=== PATIENT | male | born 1985 | race Caucasian/White ===

== ENCOUNTER 2017-08-13 15:37 | Emergency (ER) | payer BC ==
--- NOTE | 2017-08-14 11:49 | CR ---
INDICATION: Fifth toe trauma, hit on bed leg at 1100. RIGHT FOOT: Three views of the right foot revealed transverse fracture through the distal phalanx of the 5th toe in good position and alignment. No other bone or joint abnormality was identified. MTDD
--- NOTE | 2017-08-16 08:18 | ER ---
DATE SEEN: 08/13/2017 TIME SEEN: The patient was seen at 1544 hours. 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 It makes it difficult for him to work. The patient works at [employer]. He is supposed to go to work at 1830 hours, and he would like a work note to excuse himself. He has lot of pain with walking. He noted that he had difficulty putting his boot on, so he thought perhaps he needed to be seen to rule out a fracture. ALLERGIES: None. PAST MEDICAL HISTORY: Negative. No diabetes, heart disease, high blood pressure or asthma. No serious fractures, hospitalizations, or injuries. MEDICATIONS: None. REVIEW OF SYSTEMS: Otherwise negative, except for as noted above. PHYSICAL EXAMINATION: VITAL SIGNS: Blood pressure 133/66, heart rate 97, respirations 17, oxygen saturation 96%, temperature is 37.2 degrees centigrade, 86.18 kg, BMI 30.7 kg/m2. GENERAL: This pleasant slightly overweight gentleman has moderate discomfort in his right 5th toe. HEENT: PERRLA intact. Pharynx without abnormality. NECK: Supple. No thyromegaly. LUNGS: Clear without rales, rhonchi, or wheezes. HEART: S1, S2. No murmur. ABDOMEN: Soft. No guarding. No abdominal discomfort. EXTREMITIES: Negative, except for right 5th toe has moderate tenderness with any movement. Moderate swelling and moderate ecchymosis and discoloration, a purplish/reddish hue. DIAGNOSTIC STUDIES: X-ray reveals no fracture - If there is a fracture on Radiology over-read, I have told the patient somebody would be calling him. DIAGNOSIS: Contusion and strain in ligaments of the toe. PLAN: Dimitri-tape the toes with gauze interface and change his gauze as needed. Keep clean. Follow up with doctor in a week, earlier if worse. Tylenol 1000 mg and ibuprofen 600 mg together every 6 hours p.r.n. pain. /[id number] LS/[id number]
== END 2017-08-13 16:45 | disposition home or self-care (01) ==
LOC: FB.ED 15:37
DX: S96.911A Strain of unspecified muscle and tendon at ankle and foot level, right foot, initial encounter (principal); W22.03XA Walked into furniture, initial encounter
CPT/HCPCS: 73630-RT; 99283

== ENCOUNTER 2022-01-19 19:08 | Emergency (ER) | payer BC ==
[2022-01-19] MEDS ORDERED: Ciprofloxacin 500 MG Tab PO ONE (19:09)
[2022-01-19 19:45] LABS: ESTIMATED GFR 90 mL/min (>60)
== END 2022-01-19 21:25 | disposition home or self-care (01) ==
LOC: FB.ED 19:08
DX: N39.0 Urinary tract infection, site not specified (principal); Z88.1 Allergy status to other antibiotic agents
CPT/HCPCS: 36415; 80048; 81001; 85025; 87086; 99283; A9270